=== PATIENT | male | born 1990 | race Caucasian/White ===

== ENCOUNTER 2019-11-04 20:50 | Emergency (ER) | payer SELFPAY ==
[~2019-11-04] VITALS: Ht 172.7 cm; Wt 78.0 kg
[2019-11-04] MEDS: SODIUM CHLORIDE 0.9% 1,000 ML IV ONE (22:00)
[2019-11-04 22:31] LABS: BASOPHILS % 0.2 % (0.0-2.0); EOSINOPHILS % 0.7 % (0.0-5.0); HEMATOCRIT. 43.6 % (42.0-52.0); HEMOGLOBIN. 14.7 g/dL (14.0-18.0); LYMPHOCYTES % 33.9 % (20.0-50.0); MEAN CORPUSCULAR HEMOGLOBIN 30.7 pg (28.0-32.0); MEAN CORPUSCULAR VOLUME 90.7 fL (80.0-94.0); MEAN PLATELET VOLUME 7.9 fl (7.4-10.4); MONOCYTES % 8.4 % (2.0-8.0); NEUTROPHILS % 56.8 % (40.0-76.0); PLATELET 243 x1000/uL (130-400); RED BLOOD CELL COUNT 4.81 mill/uL (4.7-6.1); RED CELL DISTRIBUTION WIDTH 13.2 % (11.6-14.6)
[2019-11-04 22:41] LABS: CHLORIDE 107 mEq/L (98-107)
[2019-11-04 23:47] VITALS: BP 120/87
== END 2019-11-04 23:54 | disposition home or self-care (01) ==
LOC: ER 21:08
DX: R07.89 Other chest pain (principal)
CPT/HCPCS: 36415; 71045; 80053; 83880; 84484; 85025; 85379; 93005; 96360; 96361; 99284; J7030; Z7610